=== PATIENT | female | born 1930 | race Caucasian/White ===

== ENCOUNTER 2016-10-07 19:47 | Observation (INO) | payer MEDICARE, BC ==
[~2016-10-07] VITALS: Ht 165.1 cm; Wt 47.0 kg
[~2016-10-07 19:47] MED LIST: B-122500 MCG SL; CARAFATE 1 GM TA1 GM PO; CITRACAL + D31 EACH PO; COUMADIN2 MG PO; COUMADIN4 MG PO; ENSURE ORIGINA237 ML PO; KLOR-CON M2020 MEQ PO; LUMIGAN 0.01%2.5 ML OU; PREVPAC PATIEN1 EACH PO; PROTONIX40 MG PO; QUINAPRIL HCL5 MG PO; SYNTHROID25 MCG PO; VITAMIN B-1000 MCG/M IM; VITAMIN D2000 UNI1 PO; VITAMIN D50000 UNIT PO
[2016-10-07 21:46] LABS: HEMOGLOBIN 12.3 gm/dl (12.3-15.3); RED BLOOD COUNT 4.28 M/UL (4.00-5.10); WHITE BLOOD COUNT 6.8 K/UL (4.5-11.0)
[2016-10-08] MEDS ORDERED: CITRACAL + D31 EACH PO (00:06)
[2016-10-08] MEDS ORDERED: NITROSTAT0.4 MG SL (00:25)
[2016-10-08] MEDS ORDERED: COUMADIN4 MG PO (00:37)
[2016-10-08] MEDS ORDERED: B-122500 MCG SL (00:43)
[2016-10-08] MEDS ORDERED: VITAMIN D400 UNIT PO (00:48)
== END 2016-10-08 18:20 | disposition home or self-care (01) ==
LOC: ER1 19:47 → ZEROF 22:28 → M/S 23:37
PROVIDERS: Internal Medicine; Student in an Organized Health Care Education/Training Program; ADMIT Emergency Medicine
DX: I10 Essential (primary) hypertension (principal); R07.89 Other chest pain; I48.2 Chronic atrial fibrillation; E78.5 Hyperlipidemia, unspecified; K21.9 Gastro-esophageal reflux disease without esophagitis; I34.1 Nonrheumatic mitral (valve) prolapse; M81.0 Age-related osteoporosis without current pathological fracture; E03.9 Hypothyroidism, unspecified; Z86.79 Personal history of other diseases of the circulatory system; Z90.49 Acquired absence of other specified parts of digestive tract; Z95.0 Presence of cardiac pacemaker; Z90.89 Acquired absence of other organs; Z98.41 Cataract extraction status, right eye; Z98.42 Cataract extraction status, left eye; Z88.1 Allergy status to other antibiotic agents; Z88.2 Allergy status to sulfonamides; Z88.5 Allergy status to narcotic agent; Z88.6 Allergy status to analgesic agent; Z88.8 Allergy status to other drugs, medicaments and biological substances; Z79.01 Long term (current) use of anticoagulants; Z79.899 Other long term (current) drug therapy
CPT/HCPCS: 36415; 71010; 80048; 80053; 80061; 82550; 82553; 83874; 84443; 84484; 85025; 85610; 85730; 93005; 99285; G0378

== ENCOUNTER → 2020-07-15 | Outpatient (CLI) | payer MEDICARE, BC ==
[~2020-07-15] VITALS: Ht 160 cm; Wt 47.2 kg
[~2020-07-15] MED LIST changes: +ALPHAGAN P OP SO5 ML OU; +LEVAQUIN250 MG PO; +NITROSTAT0.4 MG SL; +PROLIA INJ60 MG/1 ML SC; +VITAMIN D400 UNIT PO
== END ==
LOC: OPSV 13:00
DX: M81.0 Age-related osteoporosis without current pathological fracture (principal); M84.48XA Pathological fracture, other site, initial encounter for fracture
CPT/HCPCS: 96372

== ENCOUNTER → 2021-02-09 | Outpatient (CLI) | payer MEDICARE, BC ==
[~2021-02-09] VITALS: Ht 160 cm; Wt 47.2 kg
== END ==
LOC: OPSV 02-04 14:00
DX: M81.0 Age-related osteoporosis without current pathological fracture (principal); M84.48XA Pathological fracture, other site, initial encounter for fracture
CPT/HCPCS: 96372

== ENCOUNTER → 2021-08-10 | Outpatient (CLI) | payer MEDICARE, BC ==
[~2021-08-10] VITALS: Ht 160 cm; Wt 46.7 kg
== END ==
LOC: OPSV 13:40
DX: M80.08XA Age-related osteoporosis with current pathological fracture, vertebra(e), initial encounter for fracture (principal)
CPT/HCPCS: 96372